=== PATIENT | female | born 1970 | race Two or more races ===

== ENCOUNTER 2024-07-28 15:47 | Emergency (ER) | payer OTHER ==
[~2024-07-28] VITALS: Ht 152.4 cm; Wt 56.7 kg
[2024-07-28] MEDS ORDERED: COVARYX H.S. T1 EACH (15:57)
[2024-07-28] MEDS ORDERED: ENDOMETRIN100 MG (15:57)
[2024-07-28] MEDS ORDERED: TESTIM5 GM PO (15:57)
[2024-07-28] MEDS ORDERED: GUAIFENESIN/DEXTROMETHORPHAN 10ML BLIST.PACK PO ONE (20:15)
[2024-07-28 21:12] LABS: HEMATOCRIT 43.7 % (36.0-45.00); HEMOGLOBIN 15.2 g/dL (12.0-15.00); MEAN CELL VOLUME 93.2 fL (80.00-100.00); MEAN CORPUSCULAR HEMOGLOBIN 32.4 pg (27.00-32.0); MEAN CORPUSCULAR HGB CONC 34.7 g/dl (32.0-36.0); PLATELET COUNT 263 K/uL (150-450); RED BLOOD COUNT 4.69 M/uL (4.00-6.00); RED CELL DISTRIBUTION WIDTH 12.9 % (11.5-14.5)
[2024-07-28] MEDS ORDERED: TUSSIN DM LIQU118 ML PO (22:27)
[2024-07-28] MEDS ORDERED: AMOX-CLAV 875-1 EAC1 PO (22:27)
[2024-07-29 00:06] LABS: ABG PH 7.451 (7.35-7.45); ABG PO2 114.1 mmHg (80-100); ABG pCO2 33.7 mmHg (35-45); BASE EXCESS -0.3 mmol/l; BICARBONATE 22.9 mmol/l (23-25); SaO2 98.6 %; allen test SATISFACTORY; o2 21 %; puncture site RADIAL LEFT
== END 2024-07-28 22:47 ==
LOC: ER 15:49
PROVIDERS: Nurse Practitioner Family
DX: J06.9 Acute upper respiratory infection, unspecified (principal); E03.8 Other specified hypothyroidism

== ENCOUNTER 2025-05-10 08:00 | Day surgery (SDC) | payer OTHER ==
[2025-05-06 11:06] VITALS: BP 132/79
[2025-05-06 11:24] LABS: BASO % 0.9 % (0.1-1.2); EOS # 0.10 (0.04-0.54); EOS % 2.3 % (0.7-7.0); LYMPH # 1.67 (1.18-3.74); LYMPH % 37.7 % (19.3-53.1); MEAN PLATELET VOLUME 9.80 fl (9.4-12.4); MONO # 0.30 (0.24-0.82); MONO % 6.8 % (4.7-12.5); NEUT # 2.31 (1.56-6.13); NEUT % 52.1 % (34.0-71.1); RED CELL DISTRIBUTION WIDTH 11.7 % (11.6-14.4)
[2025-05-06 11:31] LABS: URINE APPEARANCE Clear; URINE BILIRRUBIN Negative (NEGATIVE); URINE BLOOD Negative; URINE COLOR Yellow; URINE GLUCOSE Negative (NEGATIVE); URINE KETONE Negative (NEGATIVE); URINE LEUKOCYTE Moderate; URINE NITRATE Negative; URINE PROTEIN Negative (NEGATIVE); URINE UROBILINOGEN 0.2 E.U./dl
[2025-05-06 11:32] LABS: URINE BACTERIA 885.2 uL (0.0-1933); URINE EPITHELIAL CELLS 18.1 uL (0.0-38.8); URINE RBC 3.8 uL (0.0-20.8); URINE WBC 19.3 uL (0.0-23.2)
[2025-05-06 11:42] LABS: URINE CAST 0.00 uL (0.0-1.40)
[2025-05-06 11:55] LABS: ALT/SGPT 29.0 U/L (12-78); AST/SGOT 15.0 U/L (15-37); BILIRUBIN TOTAL 0.7 mg/dL (0.3-1.2); BUN CREA RATIO 14.0 (7.0-25.0); CREATININE SERUM 0.76 mg/dL (0.55-1.02); GFR 79.01; GLOBULINA 3.4 G/DL (2.4-3.5); GLUCOSE FASTING 100.0 mg/dL (65-100); OSMOLALITY SERUM 290.0 MOSM/KG (275-295)
[2025-05-06 12:09] LABS: INR 1.0
[~2025-05-10] VITALS: Ht 152.4 cm; Wt 58.5 kg
[~2025-05-10 08:00] MED LIST: AMOX-CLAV 875-1 EAC1 PO; COVARYX H.S. T1 EACH; ENDOMETRIN100 MG; LEVOTHYROXINE25 MCG PO; TESTIM5 GM PO; TUSSIN DM LIQU118 ML PO
[2025-05-10] MEDS ORDERED: POVIDONE-IODINE 118 ML BOTT TOP ONE (09:30)
[2025-05-10] MEDS ORDERED: ONDANSETRON HCL 2 MG/ML VIAL IV ONE (10:30)
== END 2025-05-10 15:20 | disposition home or self-care (01) ==
LOC: CIR.AMB 08:00
PROVIDERS: ATTEND Obstetrics & Gynecology
DX: N84.0 Polyp of corpus uteri (principal); N95.0 Postmenopausal bleeding